=== PATIENT | female | born 1980 | race Hispanic/Latino ===

== ENCOUNTER 2017-10-17 08:42 | Emergency (ER) | payer SELFPAY ==
[~2017-10-17] VITALS: Ht 162.6 cm; Wt 81.6 kg
[2017-10-17 08:53] VITALS: BP 102/70
[2017-10-17] MEDS ORDERED: PREDNISONE10 M2 PO (09:07)
--- NOTE | 2017-10-17 09:07 | ED SKIN/ALLERGY COMPLAINT ---
History of Present Illness General Chief Complaint: Skin Rash/ Abcess Stated Complaint: RASH Source: patient Exam Limitations: no limitations Vital Signs & Intake/Output Vital Signs & Intake/Output Vital Signs Date Time Temp Pulse Resp B/P B/P Pulse O2 O2 Flow FiO2 Mean Ox Delivery Rate 10/17 0853 97.1 107 15 102/70 99 Room Air Room Air Allergies Coded Allergies: No Known Allergies (10/17/17) Reconcile Medications Prednisone 10 MG TABLET 1 TAB PO DAILY rash 4 tabs po x 3 days, 3 tabs po x 3 days, 2 tabs po x 3 days, 1 tab po x 3 days Triage Note: PT TO ED FOR C/C OF RASH TO WHOLE BODY THAT STARTED LAST SUNDAY. RASH IS NOTED TO LOOK LIKE WELTS AND THE WELTS COME AND GO. LARGE AREA NOTED TO ABDOMEN. PT HAS BEEN USING CHALAMINE LOTION AT HOME. Triage Nurses Notes Reviewed? yes Onset: Gradual Duration: week(s): (1) Timing: no prior history Severity: moderate Severity Numbers: 6 Location: torso, extremities Possible Factors: no cause identified Modifying Factors: Improves With: antihistamine, calamine lotion. : No Patient currently breastfeeds: No HPI: Patient is a 37-year-old female presenting to the emergency department sheet complaining of pruritic rash on trunk and extremities has been going for the past one week. She reports that she's been taking Claritin with some relief but over the past 2 days symptoms worsen. Patient also has been applying topical calamine lotion. Denies any shortness of breath fevers chills nausea vomiting chest pain or shortness of breath. Patient denies any new exposures. She does report that she's been under a lot of stress over the past one week. Patient does admit to taking hot showers. (Salome Marsh) Past History Travel History Traveled to [place] past 21 day No Medical History Any Pertinent Medical History? 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 No (Salome Marsh) Review of Systems Review of Systems Constitutional: Reports: no symptoms. Comments Review of systems: See HPI, All other systems negative. Constitutional, no chills fever or weight loss HEENT: No visual changes no sore throat no congestion Cardiovascular: No chest pain ,palpitation , orthopnea or ankle swelling Skin, no jaundice Respiratory: No dyspnea cough sputum or hemoptysis GI: No nausea no vomiting Muscle skeletal: no back pain, no neck pain, Neurologic: No numbness no confusion, no headaches Psych: No stress anxiety or depression,. Heme/endocrine: No bruising no bleeding no polyuria or polydipsia Immunology: No splenectomy or history of AIDS (Salome Marsh) Physical Exam Physical Exam General Appearance: well developed/nourished, no apparent distress, alert, awake , comfortable Comments: Well-developed well-nourished person in no acute distress HEENT: Pupils equally round and reactive to light and accommodation. Nose is atraumatic. External auditory canal and Tympanic membranes clear. Pharynx normal. No swelling or edema. Neck: Normal inspection Cardiovascular: Regular rate and rhythms no murmurs rubs or gallops, normal JVP Respiratory: Chest nontender. No respiratory distress.breath sounds clear to auscultation bilaterally Extremity: No edema Neuro: Alert oriented x3 Skin: Erythematous, blotchy, raised, welt-like lesions noted on the lower extremities and trunk, blanchable. Nontender. Excoriations present. Lesions range from approximately 2 cm in diameter to approximately 8 cm in diameter. Psych: Mood and affect is normal, memory and judgment is normal. (Salome Marsh) Progress Differential Diagnosis: allergic reaction, contact dermatitis, drug reaction, erythema multiforme Plan of Care: Rashes nonspecific, appears to be healed carry-on nature. Patient will be treated with prednisone and [id number] Benadryl. She will follow up with dermatology if symptoms persist. Patient denying any new exposures. (Salome Marsh) Departure Departure Time of Disposition: 905 Disposition: HOME OR SELF CARE Condition: Stable Clinical Impression Primary Impression: Rash and nonspecific skin eruption Referrals: Patient Has No Primary Care Dr (PCP/Family) Margo WALKER,Jodie Daly Additional Instructions: Follow-up with dermatology if symptoms persist. Otherwise follow-up with your primary care physician in the next 5-7 days. Take prednisone taper as prescribed. Use nroe-run-gkslaim Benadryl as directed. Avoid hot showers as ischemic rashes worse. Return for worsening symptoms or concerns. Departure Forms: Customer Survey General Discharge Information Prescriptions: Current Visit Scripts Prednisone 1 TAB PO DAILY #30 TAB 4 tabs po x 3 days, 3 tabs po x 3 days, 2 tabs po x 3 days, 1 tab po x 3 days (Salome Marsh) PA/GPS FIELD DATA COLLECTOR Co-Sign Statement Statement: ED Attending supervision documentation- [] I saw and evaluated the patient. I have also reviewed all the pertinent lab results and diagnostic results. I agree with the findings and the plan of care as documented in the PA's/GPS FIELD DATA COLLECTOR's documentation. [X] I have reviewed the ED Record and agree with the PA's/GPS FIELD DATA COLLECTOR's documentation. [] Additions or exceptions (if any) to the PAs/GPS FIELD DATA COLLECTOR's note and plan are summarized below: [] (Carolyn WALKER,Nestor Xavier)
== END 2017-10-17 09:15 ==
LOC: ERH 08:42
DX: R21 Rash and other nonspecific skin eruption (principal)

== ENCOUNTER 2017-10-30 10:31 | Inpatient (IN) | payer OTHER ==
[~2017-10-30] VITALS: Ht 162.6 cm; Wt 86.2 kg
[~2017-10-30 10:31] MED LIST: PREDNISONE10 M2 PO
--- NOTE | 2017-10-30 13:19 | ED GENERAL ADULT ---
See Addendum History of Present Illness General Chief Complaint: General Adult Stated Complaint: N/V/D,HIVES,WEAKNESS,SORE THROAT Source: patient, family, old records Exam Limitations: no limitations Vital Signs & Intake/Output Vital Signs & Intake/Output Vital Signs Date Time Temp Pulse Resp B/P B/P Pulse O2 O2 Flow FiO2 Mean Ox Delivery Rate 10/30 2349 97.7 86 22 96/52 99 Room Air 10/307 Room Air Room Air 10/30 2035 98.2 96 25 94/62 99 Room Air / 2000 103 94/52 /06 1944 99 95/54 03/06 1831 99.1 94 20 94/56 99 Room Air / 1734 106 18 98/58 98 Room Air / 1710 88/64 /06 1631 74/42 /06 1614 74/00 /06 1613 68/40 03/06 1527 98.3 94 18 78/48 98 Room Air / 1438 99.3 95 18 82/42 99 Room Air / 1405 99 Room Air / 1048 98.6 110 18 100/61 98 Room Air ED Intake and Output / 0000 /06 1200 Intake Total 7930 Output Total 550 Balance 7380 Intake, IV 7450 Intake, Oral 480 Output, Urine 550 Patient 190 lb 190 lb Weight Weight Reported by Patient Reported by Patient Measurement Method Allergies Uncoded Allergies: MULTIPLE ALLERIES (PT UNSURE OF WHAT ALLERGIES 10/30/17) Reconcile Medications Prednisone 10 MG TABLET 1 TAB PO DAILY rash 4 tabs po x 3 days, 3 tabs po x 3 days, 2 tabs po x 3 days, 1 tab po x 3 days Triage Note: 37 YO FEMALE TO TRIAGE C/O HIVES AND SORE THROAT. STATES SHE HAS HAD THE HIVES AND SORE THROAT X2 WEEKS. STATES "I WENT TO THE DOCTOR AND THEY SAID I AM ALLERGIC TO ALOT OF STUFF, I DONT KNOW WHAT THEY ARE BUT ITS ALOT OF MEDS, I THINK IT MIGHT BE BENADRYL" NOTED WITH HIVES ALL OVER BODY. NO RESP DISTRESS, RA SATS 98%, PT SPEAKING IN FULL, CLEAR SENTANCES. Triage Nurses Notes Reviewed? yes Onset: Gradual Duration: day(s): Timing: recent history Injury Environment: home Severity: moderate : No Patient currently breastfeeds: No HPI: 37yo female presents to ED complaining of persistent hives. Patient was seen and evaluated here in the emergency department within the past few weeks for the same complaint. She was started on prednisone taper. Patient reports rash went away following prednisone. After she finished course of steroids her symptoms returned and are currently worse than previous episode. Patient reports intermittent scratchy feeling in her throat and as though her throat is closing. PAtient also reports dyspnea, diarrhea, 10 episodes of vomiting beginning last night. Patient states that today when she was leaving the bathroom she passed out for unknown amount of time, she believes she hit her head at that time. She also hit her left wrist. Patient with pain in her left wrist and mild headache. The patient denies chest pain, abdominal pain, sore throat. (Bernadette Chung) Past History Travel History Traveled to [place] past 21 day No Medical History Any Pertinent Medical History? 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 No (Bernadette Chung) Review of Systems Review of Systems Constitutional: Reports: see HPI. EENTM: Reports: see HPI. Respiratory: Reports: see HPI. Cardiovascular: Reports: no symptoms. GI: Reports: see HPI. Genitourinary: Reports: no symptoms. Musculoskeletal: Reports: see HPI. Skin: Reports: see HPI. Neurological/Psychological: Reports: see HPI. Hematologic/Endocrine: Reports: no symptoms. Immunologic/Allergic: Reports: no symptoms. All Other Systems: Reviewed and Negative (Bernadette Chung) Physical Exam Physical Exam General Appearance: well developed/nourished, no apparent distress, alert, awake Head: atraumatic, normal appearance Eyes: Bilateral: normal appearance, PERRL, EOMI. Ears, Nose, Throat: normal pharynx, hearing grossly normal, no angioedema, no posterior pharynx swelling Neck: normal inspection, supple, full range of motion Respiratory: normal breath sounds, no respiratory distress, lungs clear Cardiovascular: tachycardia Peripheral Pulses: 2+ radial (R), 2+ radial (L) Gastrointestinal: normal bowel sounds, soft, non-tender, no organomegaly Back: normal inspection, normal range of motion Extremities: normal inspection, normal range of motion Neurologic/Psych: awake, alert, oriented x 3, extruding press adjuster II-XII nml as tested Skin: slightly raised urticarial erythematous rash systemically with slightly darker borders, nontender Core Measures ACS in differential dx? No CVA/TIA Diagnosis: No Sepsis Present: No Sepsis Focused Exam Completed? No (Jessica LALA,Bernadette Villaseñor) Progress Differential Diagnoses I considered the following diagnoses in my evaluation of the patient: [ Anaphylactic shock, sepsis, hives/urticaria, allergic reaction, polycythemia vera, leukemia/lymphoma, carcinoid syndrome, leukocytosis] Plan of Care: Orders Procedure Date/time Status ICU LAB BUNDLE 10/31 0500 Complete CBC WITHOUT DIFFERENTIAL 10/31 0500 Complete Regular Diet 10/30 D Active Wound Care/Dressing 10/31 2127 Complete Weight 10/31 2127 Active VTE Mechanical Prophylaxis 10/31 2127 Active Vital Signs 10/31 2127 Active Turn and Reposition 10/31 2127 Complete Drains/Tubes 10/31 2127 Complete Teach/Educate 10/31 2127 Active Skin Integrity Protocol 10/31 2127 Complete Skin/Pressure Ulcer Assess (Sk 10/31 2127 Active Precautions 10/31 2127 Active Pain Treatment and Response 10/31 2127 Active Nutritional Intake, Monitor 10/31 2127 Active Isolation 10/31 2127 Active CIWA 10/31 2127 Complete Patient Care Conference 10/31 2127 Active Activity/Ambulation 10/31 2127 Active RT: Evaluation 10/30 2056 Active ACTIVE SURVEILLANCE NARES 10/30 2046 Active TRC EVALUATION (GEN) 10/30 181 Complete OXYGEN SETUP (GEN) 10/30 1813 Active Pathway - chart 10/30 181 Active House Staff 10/30 1814 Active Patient Data 10/30 1814 Active Code Status 10/30 181 Active Patient Data 10/30 1653 Active Admit to inpatient 10/30 1648 Active CULTURE,URINE 10/30 1615 Active BLOOD CULTURE 10/30 1530 Active Add-on Test (ER Only) 10/30 1456 Active Add-on Test (ER Only) 10/30 1446 Active Add-on Test (ER Only) 10/30 1339 Active LDH (LACT ACID DEHYDROGENASE) 10/30 1338 Complete LACTIC ACID 10/30 1338 Complete HUMAN BETA HCG SCREEN 10/30 1338 Complete C-REACTIVE PROTEIN 10/30 1338 Complete MISTAKE 10/30 1327 Active URINE DRUG SCREEN FOR ER ONLY 10/30 1327 Complete URINALYSIS 10/30 1327 Complete TROPONIN LEVEL 10/30 1327 Complete HIGH SENSITIVITY CRP 10/30 1327 Complete ETHANOL 10/30 1327 Complete COMPREHENSIVE METABOLIC PANEL 10/30 1327 Complete CBC WITHOUT DIFFERENTIAL 10/30 1327 Complete EKG 10/30 1327 Active THROAT CULTURE W/QUICK STREP 10/30 1050 Active THERAPIST ORDERS 10/30 UNK Complete VTE Mechanical Prophylaxis 10/30 UNK Active Vital Signs 10/30 UNK Active MISTAKE 10/30 UNK Complete Intake & Output 10/30 UNK Active Hemoccult 10/30 UNK Active CMS- Neurovascular Checks 10/30 UNK Active Current Medications Sig/Miguel Start time Last Medication Dose Stop Time Status Admin Methylprednisolone 60 MG Q8 10/31 0600 AC 10/31 (Solu Medrol) 0534 Sodium Chloride 1,000 ML Q10H 10/30 1815 AC 10/31 (Normal Saline 0.9%) 0400 Enoxaparin Sodium 40 MG DAILY@1800 10/30 1814 AC (Lovenox) Laboratory Tests 10/31/17 0515: Anion Gap 6, Estimated GFR > 60, Glucose 148 H, Calcium 8.0 L, Phosphorus 2.2 L, Magnesium 1.9, Total Bilirubin 0.3, AST 13 L, ALT 21, Albumin 2.3 L, CBC w Diff MAN DIFF ORDERED, RBC 3.46 L, MCV 87.6, MCH 29.1, MCHC 33.3, RDW 13.6, MPV 7.3 L, Gran % 91.8 H, Lymphocytes % 6.9 L, Monocytes % 1.3 L, Eosinophils % 0, Basophils % 0, Absolute Granulocytes 14.9 H, Segmented Neutrophils 87 H, Band Neutrophils 4, Absolute Lymphocytes 1.1 L, Lymphocytes 8 L, Monocytes 1 L, Absolute Monocytes 0.2, Absolute Eosinophils 0, Absolute Basophils 0, Platelet Estimate ADEQUATE, Normocytic RBCs VERIFIED, Normochromic RBCs VERIFIED , Elliptocytes RARE 10/30/17 1700: Urine Opiates Screen < 100, Methadone Screen < 40, Barbiturate Screen < 60, Ur Phencyclidine Scrn < 6.00, Amphetamines Screen < 100, U Benzodiazepines Scrn < 85, Urine Cocaine Screen < 50, Urine Cannabis Screen < 5.00, Urinalysis LIGHT H , Urine Color STRAW, Urine Clarity HAZY H, Urine pH 7.0, Ur Specific [place] <= 1.005, Urine Protein NEG, Urine Ketones NEG, Urine Nitrite NEG, Urine Bilirubin NEG, Urine Urobilinogen 0.2, Ur Leukocyte Esterase NEG, Ur Microscopic SEDIMENT EXAMINED, Urine RBC RARE, Urine WBC RARE, Ur Epithelial Cells FEW, Urine Bacteria MOD H, Urine Mucus FEW, Urine Hemoglobin SMALL H, Urine Glucose NEG 10/30/17 1338: Lactic Acid 1.5 10/30/17 1338: Anion Gap 11, Estimated GFR > 60, BUN/Creatinine Ratio 15.7, Glucose 106 H, Calcium 8.9, Total Bilirubin 1.4 H, AST 16, ALT 27, Alkaline Phosphatase 69, Lactate Dehydrogenase 627 H, Troponin I < 0.01, C-Reactive Prot, Quant 5.3 H, C-React Prot High Sens > 15.0 H, Total Protein 6.3, Albumin 3.1 L, Globulin 3.2, Albumin/Globulin Ratio 1.0 L, Total Beta HCG NEGATIVE, CBC w Diff MAN DIFF ORDERED, RBC 4.73, MCV 85.8, MCH 28.8, MCHC 33.6, RDW 13.0, MPV 7.4, Gran % 87.5 H, Lymphocytes % 11.8 L, Monocytes % 0.4 L, Eosinophils % 0.2, Basophils % 0.1, Absolute Granulocytes 22.2 H, Absolute Lymphocytes 3.0, Absolute Monocytes 0.1, Absolute Eosinophils 0.1, Absolute Basophils 0, Platelet Estimate VERIFIED BY SMEAR, Normocytic RBCs VERIFIED, Normochromic RBCs VERIFIED, Serum Alcohol < 10.0 Microbiology 10/30 2049 UPPER RESP: Surveillance Culture - RECD 10/30 193 BLOOD: Blood Culture - RECD 10/30 170 URINE ROUT: Urine Culture - RECD 10/30 1645 BLOOD: Blood Culture - RECD Labs show thrombocytosis and leukocytosis with elevated CRP. Patient's blood pressure is now trending downward, she is hypotensive. Second liter of fluids was initiated. Blood pressure continues to trend downward, Dr. Leon ordered epinephrine 0.3 SC. Patient's rash resolved following epinephrine, patient also reports feeling improvement in her symptoms however she is still persistently hypotensive. Patient getting 4 L normal saline. Blood pressure is now improving following 4 L, will continue saline and monitor blood pressure. Patient in no acute distress, stable, mentating well. Dr. Kwok present to see and evaluate the patient. He spoke with Dr. Tello regarding this patient's ICU admission. Diagnostic Imaging: Viewed by Me: Radiology Read, CT Scan. Discussed w/RAD: Radiology Read, CT Scan. Radiology Impression: PATIENT: LAURENT AVERY PRESENT AGE: 37 PATIENT ACCOUNT NO: [id number] : 78 LOCATION: [facility] ORDERING PHYSICIAN: Bernadette LALA SERVICE DATE: 10/30/17 EXAM TYPE: CAT - CT HEAD WO IV CONTRAST EXAMINATION: CT HEAD WITHOUT CONTRAST CLINICAL INFORMATION: Syncopal episode this morning. COMPARISON: None TECHNIQUE: Contiguous axial imaging was performed from the skull base to vertex without intravenous administration of contrast. DLP: 603 mGy-cm FINDINGS: Brain parenchyma: Normal. Gold-white matter differentiation is well preserved. No evidence of an acute major vascular territory infarction, hemorrhage, mass or midline shift. Cerebrospinal fluid spaces: Normal. No hydrocephalus or extra- axial fluid collections. Cerebellum and brainstem: Unremarkable. The 4th ventricle is midline in position. The cerebellopontine angles are normal. Calvarium and temporomandibular joints: Calvarium is intact. Mastoid air cells and middle ear cavities are well aerated. There is mild degenerative subarticular sclerosis and subarticular cystic change of the mandibular condyle at the right TMJ. Paranasal sinuses and orbits: The visualized paranasal sinuses are well aerated. The visualized orbits are unremarkable. Other: No acute findings in the visualized extracranial soft tissues. IMPRESSION: No acute intracranial pathology. DICTATED BY: Pablo Carey MD DATE/TIME DICTATED:10/30 WIRE FRAME LAMPSHADE MAKER:JAMEEL DATE/TIME TRANSCRIBED:10/30/171627 CONFIDENTIAL, DO NOT COPY WITHOUT APPROPRIATE AUTHORIZATION. <Electronically signed in Other Vendor System> SIGNED BY: Pablo Carey MD 10/30/17 1635, PATIENT: LAURENT AVERY PRESENT AGE: 37 PATIENT ACCOUNT NO: [id number] : 76 LOCATION: [facility] ORDERING PHYSICIAN: Bernadette LALA SERVICE DATE: 10/30/17 EXAM TYPE: RAD - XRY-WRIST COMPLETE-RIGHT EXAMINATION: XR WRIST, RIGHT CLINICAL INFORMATION: Pain after fall on wrist. Evaluate for fracture. COMPARISON: None TECHNIQUE: Right wrist, 4 views FINDINGS: Alignment is normal. Distal radius and ulna are intact. No acute fracture, subluxation or focal soft tissue swelling. The carpal joint spaces are normal. The pronator quadratus fat stripe is maintained. IMPRESSION: Normal right wrist. No acute fracture or malalignment. DICTATED BY: Pablo Carey MD DATE/TIME DICTATED:10/30/171528 WIRE FRAME LAMPSHADE MAKER:JAMEEL DATE/TIME TRANSCRIBED:10/30/171528 CONFIDENTIAL, DO NOT COPY WITHOUT APPROPRIATE AUTHORIZATION. <Electronically signed in Other Vendor System> SIGNED BY: Pablo Carey MD 10/30/171533 CXR Impression: PATIENT: LAURENT AVERY PRESENT AGE : 37 PATIENT ACCOUNT NO: [id number] : 76 LOCATION: [facility] ORDERING PHYSICIAN: Bernadette LALA SERVICE DATE: 10/30/17161 EXAM TYPE: RAD - XRY-PORTABLE CHEST XRAY EXAMINATION: XR PORTABLE CHEST CLINICAL INFORMATION: Anaphylactic shock COMPARISON: None TECHNIQUE: Portable frontal view of the chest was obtained. 5:06 PM FINDINGS: No significant abnormality is noted involving the heart, lungs, mediastinum, bony thorax or soft tissues. IMPRESSION : Unremarkable examination. DICTATED BY: Jaime Keating MD DATE/TIME DICTATED:02/11 WIRE FRAME LAMPSHADE MAKER:GUZMAN DATE/TIME TRANSCRIBED:10/30/171727 CONFIDENTIAL, DO NOT COPY WITHOUT APPROPRIATE AUTHORIZATION. <Electronically signed in Other Vendor System> SIGNED BY: Jaime Keating MD 10/30/17 173 Initial ED EKG: sinus tachycardia @106bpm (Jessica LALA,Bernadette Villaseñor) Differential Diagnoses I considered the following diagnoses in my evaluation of the patient: (Carolyn WALKER,Nestor Xavier) Departure Departure Disposition: STILL A PATIENT Clinical Impression Primary Impression: Hypotension Secondary Impressions: Leukocytosis, Nausea & vomiting, Rash, Syncopal episodes, Thrombocytosis Referrals: Payam WALKER,Josh Hurley (PCP/Family) Departure Forms: Customer Survey General Discharge Information Admission Note Spoke With: Guillermina Tello MD Documentation of Exam: Documentation of any treatments & extenuating circumstances including Concerns Regarding Discharge (functional status, medication knowledge or non-compliance, living conditions, etc.) that warrant an admission rather than observation: [ Hypotension requiring ICU monitoring, IV fluids, systemic rash with leukocytosis and thrombocytosis requiring further diagnostic workup, repeat labs, possible heme consult] (Jessica LALA,Bernadette Villaseñor) Departure Condition: Guarded PA/SALES CONTRACTOR Co-Sign Statement Statement: ED Attending supervision documentation- [X] I saw and evaluated the patient. I have also reviewed all the pertinent lab results and diagnostic results. I agree with the findings and the plan of care as documented in the PA's/SALES CONTRACTOR's documentation. [X] I have reviewed the ED Record and agree with the PA's/SALES CONTRACTOR's documentation. [] Additions or exceptions (if any) to the PAs/SALES CONTRACTOR's note and plan are summarized below: [Urticarial rash that the patient had and then it went away after steroids but came back when the steroids were stopped. The rash came back 2 days ago. He intermittently feels a tingling sensation in her throat. Unknown what she is allergic to. This morning she became nauseous and vomited 10 times. Patient then had a syncopal episode after episode of vomiting. Patient denies any difficulty breathing or swallowing. There is no chest pain or palpitations. She has not had any scaly rash. Currently she has a diffuse urticarial rash with raised borders. There are no oral lesions. The rash is not consistent with toxic shock. Patient received IV fluids, IV Solu-Medrol. Patient will receive subcutaneous epinephrine. Blood cultures have been obtained. Patient is alert and oriented 3.] (Carolyn WALKER,Nestor Xavier) Departure Comments 10/27/17 4 PM I've seen and personally examined the patient and I agree with the PAs evaluation. She is a 37-year-old female who presented with an intermittent rash over the past week. In the emergency department she was hypotensive and had urticaria. She denies any fever, chest pain, abdominal pain or other complaints. She says that the prednisone has helped her. Her labs show significant leukocytosis and mild thrombocytosis. Currently she is awake alert and oriented 3 however she is hypotensive. She is receiving IV fluids liters 4 and 5. She will be admitted to the ICU for severe allergic reaction and rule out sepsis. (Johnathan Kwok DO) Critical Care Note Critical Care Note Critical Care Time: 75-104 min (Jessica LALA,Bernadette Villaseñor)
[2017-10-30 14:02] LABS: ABSOLUTE BASOPHIL COUNT 0 /CUMM (0.0-0.2); ABSOLUTE EOSINOPHIL COUNT 0.1 /CUMM (0.0-0.7); ABSOLUTE GRANULOCYTE CT 22.2 /CUMM (1.4-6.5); ABSOLUTE MONOCYTE COUNT 0.1 /CUMM (0.10-0.60); BASOPHIL % 0.1 % (0.0-2.0); EOSINOPHIL % 0.2 % (0-5); GRANULOCYTE % 87.5 % (42.2-75.2); HEMATOCRIT 40.5 % (37-47); MEAN CORPUSCULAR HGB 28.8 PG (27.0-31.0); MEAN CORPUSCULAR HGB CONC 33.6 G/DL (33.0-37.0); MEAN CORPUSCULAR VOLUME 85.8 FL (81.0-99.0); MEAN PLATELET VOLUME 7.4 FL (7.4-10.4); PLATELET COUNT 500 /CUMM (130-400); RED BLOOD CELL CT 4.73 /CUMM (4.20-5.40); WHITE BLOOD CELL COUNT 25.4 /CUMM (4.8-10.8)
--- NOTE | 2017-10-30 15:34 | RADIOLOGY REPORT ---
EXAMINATION: XR WRIST, RIGHT CLINICAL INFORMATION: Pain after fall on wrist. Evaluate for fracture. COMPARISON: None TECHNIQUE: Right wrist, 4 views FINDINGS: Alignment is normal. Distal radius and ulna are intact. No acute fracture, subluxation or focal soft tissue swelling. The carpal joint spaces are normal. The pronator quadratus fat stripe is maintained. IMPRESSION: Normal right wrist. No acute fracture or malalignment.
--- NOTE | 2017-10-30 16:35 | CT SCAN REPORT ---
EXAMINATION: CT HEAD WITHOUT CONTRAST CLINICAL INFORMATION: Syncopal episode this morning. COMPARISON: None TECHNIQUE: Contiguous axial imaging was performed from the skull base to vertex without intravenous administration of contrast. DLP: 603 mGy-cm FINDINGS: Brain parenchyma: Normal. Gold-white matter differentiation is well preserved. No evidence of an acute major vascular territory infarction, hemorrhage, mass or midline shift. Cerebrospinal fluid spaces: Normal. No hydrocephalus or extra-axial fluid collections. Cerebellum and brainstem: Unremarkable. The 4th ventricle is midline in position. The cerebellopontine angles are normal. Calvarium and temporomandibular joints: Calvarium is intact. Mastoid air cells and middle ear cavities are well aerated. There is mild degenerative subarticular sclerosis and subarticular cystic change of the mandibular condyle at the right TMJ. Paranasal sinuses and orbits: The visualized paranasal sinuses are well aerated. The visualized orbits are unremarkable. Other: No acute findings in the visualized extracranial soft tissues. IMPRESSION: No acute intracranial pathology.
--- NOTE | 2017-10-30 17:12 | History & Physical ---
Jeff Rao 10/30/17 1712: General Information and HPI MD Statement: I have seen and personally examined LAURENT AVERY and documented this H&P. Source of Information: patient Exam Limitations: no limitations History of Present Illness: This is a 37-year-old lady with past medical history significant for seasonal allergies, intermittent episodes of urticaria who presents to the hospital for worsening of generalized hives for the past 2 weeks. Per patient, she was evaluated for same complaints few weeks prior to her presentation and was started on prednisone taper. She finished her prednisone taper on Sunday after which her hives were back and were worse. She describes them as generalized hives all over her body, tender to touch, red without itching. On Sunday, she tried some Benadryl to improve her symptoms and experienced scrathy feeling in her throat after taking Benadryl which resolved spontaneously after few hours. Yesterday, she noticed that her hives are getting worse also experienced diarrhea, nausea and vomiting last night and decided to come to the hospital for further evaluation. She also had an episode of passing out after trying to leave the restroom after vomiting; hit her left writs and might have hit her head. She states that has been evaluated as an outpatient and underwent "blood test for allergy", she was told that she is allergic to multiple substances such as dust mite, shrimp, etc. she was referred to an oil exploration engineer for further evaluation she was supposed to meet this coming week. The patient denies trying any new food, clothes, perfume or anything that could' ve triggered the worsening of her hives. She reports that she has been experiencing hives occasionally however they were never this severe. Reports having seasonal allergy mostly in summer for which she takes as needed Claritin. While in the ED, she received IV methylprednisolone and SC epinephrine. She was noted to be hypotensive and required 6 L of IV normal saline total. She noticed immediate improvement in her hives, they almost resolved. She reports experiencing palpitation after receiving"meds" in the ED(likely epinephrine). The patient denies any tobacco, illicit drug use, alcohol use. Mr. Taylor, patient's son is present at bedside. 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 EENTM: Reports: no symptoms. Denies: blurred vision, double vision, visual changes, nasal pain, throat pain. Cardiovascular: Reports: palpitations. Denies: chest pain, edema, orthopena, peripheral edema, syncope. Respiratory: Denies: cough, hemoptysis, orthopnea, short of breath, sputum production, stridor, wheezing. GI: Reports: diarrhea, nausea, vomiting. Denies: abdominal pain, bloating, constipation, distention, bowel incontinence, melena, bloody stool, changes in stool, steatorrhea. Genitourinary: Reports: no symptoms. Musculoskeletal: Reports: no symptoms. Skin: Reports: lesions (hives). Neurological/Psychological: Reports: no symptoms. Hematologic/Endocrine: Reports: no symptoms. Immunologic/Allergic: Reports: no symptoms. All Other Systems: Reviewed and Negative Exam & Diagnostic Data Last 24 Hrs of Vital Signs/I&O Vital Signs Date Time Temp Pulse Resp B/P B/P Pulse O2 O2 Flow FiO2 Mean Ox Delivery Rate 10/30 1831 99.1 94 20 94/56 99 Room Air 10/30 1734 106 18 98/58 98 Room Air / 1710 88/64 / 1631 74/42 / 1614 74/00 / 1613 68/40 /06 1527 98.3 94 18 78/48 98 Room Air / 1438 99.3 95 18 82/42 99 Room Air 10/30 1405 99 Room Air / 1048 98.6 110 18 100/61 98 Room Air Intake & Output 10/30 1600 / 0800 03/ 0000 Intake Total 1100 Output Total Balance 1100 Intake, IV 1100 Patient 190 lb Weight Weight Reported by Patient Measurement Method Physical Exam General Appearance Alert, Oriented X3, Cooperative, No Acute Distress Skin diffuse erythematous, mildly raised patchy lesions on frontal aspect of trunk, UEs and LEs. Lesions are in ring form on the back. Lesions are clinically compatible with urticaria Skin Temp/Moisture Exam: Warm/Dry Sepsis Skin Exam (color): Normal for Ethnicity HEENT Atraumatic, PERRLA, EOMI, Mucous Membr. moist/pink Neck Supple, No JVD, No thryomegaly, +2 Carotid Pulse wo Bruit, No LAD Lymphatic Axillary nl, Cervical nl Cardiovascular tachycardic Lungs Clear to Auscultation, Normal Air Movement, No wheezes Abdomen Normal Bowel Sounds, Soft, No Tenderness, No Hepatospenomegaly, No Masses Neurological Normal Speech, Strength at 5/5 X4 Ext, Normal Tone, Sensation Intact, Cranial Nerves 3-12 NL, Reflexes 2+ Extremities No Clubbing, No Cyanosis, No Edema, Normal Pulses, No Tenderness/ Swelling Vascular Normal Pulses, Pulses Symmetrical Sepsis Peripheral Pulse Location: Radial Sepsis Peripheral Pulse Exam: Normal Last 24 Hrs of Labs/Navdeep: Laboratory Tests 10/30/17 1700: Urine Opiates Screen < 100, Methadone Screen < 40, Barbiturate Screen < 60, Ur Phencyclidine Scrn < 6.00, Amphetamines Screen < 100, U Benzodiazepines Scrn < 85, Urine Cocaine Screen < 50, Urine Cannabis Screen < 5.00, Urinalysis LIGHT H , Urine Color STRAW, Urine Clarity HAZY H, Urine pH 7.0, Ur Specific [place] <= 1.005, Urine Protein NEG, Urine Ketones NEG, Urine Nitrite NEG, Urine Bilirubin NEG, Urine Urobilinogen 0.2, Ur Leukocyte Esterase NEG, Ur Microscopic SEDIMENT EXAMINED, Urine RBC RARE, Urine WBC RARE, Ur Epithelial Cells FEW, Urine Bacteria MOD H, Urine Mucus FEW, Urine Hemoglobin SMALL H, Urine Glucose NEG 10/30/17 1338: Lactic Acid 1.5 10/30/17 1338: Anion Gap 11, Estimated GFR > 60, BUN/Creatinine Ratio 15.7, Glucose 106 H, Calcium 8.9, Total Bilirubin 1.4 H, AST 16, ALT 27, Alkaline Phosphatase 69, Lactate Dehydrogenase 627 H, Troponin I < 0.01, C-Reactive Prot, Quant 5.3 H, C-React Prot High Sens > 15.0 H, Total Protein 6.3, Albumin 3.1 L, Globulin 3.2, Albumin/Globulin Ratio 1.0 L, Total Beta HCG NEGATIVE, CBC w Diff MAN DIFF ORDERED, RBC 4.73, MCV 85.8, MCH 28.8, MCHC 33.6, RDW 13.0, MPV 7.4, Gran % 87.5 H, Lymphocytes % 11.8 L, Monocytes % 0.4 L, Eosinophils % 0.2, Basophils % 0.1, Absolute Granulocytes 22.2 H, Absolute Lymphocytes 3.0, Absolute Monocytes 0.1, Absolute Eosinophils 0.1, Absolute Basophils 0, Platelet Estimate VERIFIED BY SMEAR, Normocytic RBCs VERIFIED, Normochromic RBCs VERIFIED, Serum Alcohol < 10.0 Microbiology 10/30 1936 BLOOD: Blood Culture - RECD 10/30 170 URINE ROUT: Urine Culture - RECD 10/30 164 BLOOD: Blood Culture - RECD Diagnostic Data EKG Results Sinus tachycardia, HR 106, no significant ST-T wave abnormalities CXR Results Unremarkable examination. Assessment/Plan Assessment: This is a 37-year-old lady with past medical history significant for seasonal allergies, intermittent episodes of urticaria who presents to the hospital for worsening of generalized hives for the past 2 weeks. She completed the prednisone taper as an outpatient. Yesterday, she noticed that her hives are getting worse also experienced diarrhea, nausea and vomiting last night and decided to come to the hospital for further evaluation. She also had an episode of passing out after trying to leave the restroom after vomiting; hit her left writs and might have hit her head. While in the ED, she received IV methylprednisolone and SC epinephrine. She was noted to be hypotensive and required 6 L of IV normal saline total. She noticed immediate improvement in her hives, they almost resolved. Assessment: #Acute urticaria w/possible angioedema #Hypotension #leukocytosis #thrombocytosis #Syncopal episode #N/V/diarrhea; symptoms have resolved Plan: * Monitor in the ICU * Check orthostatics * Will start the patient on IV normal saline at 150, monitor blood pressure closely * Has received 125 mg of IV Solu-Medrol into the ED, but start her on IV Solu- Medrol 60 mg 3 times a day * Hematology to r/o malignancy, dermatology and immunology consult * DVT prophylaxis with subcutaneous Lovenox * Patient is full code As Ranked By This Provider Problem List: 1. Thrombocytosis 2. Leukocytosis 3. Hypotension Core Measures/Misc (05/13) Acute Coronary Syndrome ACS Diagnosis: No Congestive Heart Failure Congestive Heart Failure Diagnosis No Cerebrovascular Accident CVA/TIA Diagnosis: No VTE (View Protocol) VTE Risk Factors Obesity No Mechanical VTE Prophylaxis d/t N/A MechProphylax Ordered No VTE Pharm Prophylaxis d/t NA PharmProphylax ordered Sepsis (View protocol) Sepsis Present: No Guillermina Tello MD 10/30/172037: Attending MD Review Statement Attending Statement Attending MD Statement: examined this patient, discuss w/resident/PA/COMB TENDER, agreed w/resident/PA/COMB TENDER, reviewed EMR data (avail) Attending Assessment/Plan: 37F no significant PMH presenting with urticaria. Had an episode about a month ago, took Benadryl which made her throat scratchy, and then Prednisone which resolved them. Then, 2 weeks ago, she developed urticaria again and was again put on Prednisone. Yesterday, she developed weakness, fatigue, and diarrhea. She came to ED today where she was found to be persistently hypotensive 70's/40' s, only improved after 5L NS. She was given Solumedrol in ED which resolved most of her hives, except for some on her back. Per ER nurse, the hives were 4- 6cm in diameter and raised. The patient has no complaints at this time. She has no new exposure to pets, fragrances, medications, supplements, detergents, or any other new agent. She has no packing or tampons in place for risk of toxic shock syndrome. Her labs show WBC 25, platelets 500. Plan - Admit to ICU for initial monitoring of hypotension, if BP holds can be downgraded tomorrow - Continue Solumedrol - Hematology and dermatology (Dr. Fierro) consult - Would recommend Y-access consult with immunology tomorrow - DVT PPx
--- NOTE | 2017-10-30 17:32 | RADIOLOGY REPORT ---
EXAMINATION: XR PORTABLE CHEST CLINICAL INFORMATION: Anaphylactic shock COMPARISON: None TECHNIQUE: Portable frontal view of the chest was obtained. 5:06 PM FINDINGS: No significant abnormality is noted involving the heart, lungs, mediastinum, bony thorax or soft tissues. IMPRESSION: Unremarkable examination.
[2017-10-30 20:35] VITALS: BP 94/62
--- NOTE | 2017-10-30 20:43 | Admission Certification ---
Admission Certification Certification Statement - As attending physician, I certify that at the time of - admission, based on clinical presentation, severity of - symptoms, need for further diagnostic testing and - therapeutic interventions, and risk of adverse outcomes - without in-hospital treatment, in my clinical assessment, - this patient requires an acute hospital stay for a minimum - of two nights or longer. I have also considered psychsocial - factors such as support system, advanced age, financial - issues, cognitive issues, and failed out-patient treatments, - past re-admission history, safety of patient, and lack of - compliance as applicable. Specific rationale supporting this admission is: Urticaria with refractory hypotension
[2017-10-30 23:49] VITALS: BP 96/52
[2017-10-31 05:34] LABS: ABSOLUTE BASOPHIL COUNT 0 /CUMM (0.0-0.2); ABSOLUTE EOSINOPHIL COUNT 0 /CUMM (0.0-0.7); ABSOLUTE LYMPH COUNT 1.1 /CUMM (1.2-3.4); ABSOLUTE MONOCYTE COUNT 0.2 /CUMM (0.10-0.60); EOSINOPHIL % 0 % (0-5); MEAN CORPUSCULAR HGB 29.1 PG (27.0-31.0); MEAN CORPUSCULAR HGB CONC 33.3 G/DL (33.0-37.0)
[2017-10-31 05:43] LABS: ABSOLUTE GRANULOCYTE CT 14.9 /CUMM (1.4-6.5); BASOPHIL % 0 % (0.0-2.0); GRANULOCYTE % 91.8 % (42.2-75.2); MEAN CORPUSCULAR VOLUME 87.6 FL (81.0-99.0); MEAN PLATELET VOLUME 7.3 FL (7.4-10.4); PLATELET COUNT 405 /CUMM (130-400); RBC DISTRIBUTION WIDTH 13.6 % (11.5-14.5); WHITE BLOOD CELL COUNT 16.2 /CUMM (4.8-10.8)
[2017-10-31 06:02] LABS: HEMATOCRIT 30.3 % (37-47); RED BLOOD CELL CT 3.46 /CUMM (4.20-5.40)
[2017-10-31 08:00] VITALS: BP 98/50
--- NOTE | 2017-10-31 09:41 | PN- Housestaff ---
Santiago Bella 10/31/17 0940: Subjective Follow-up For: Anaphylaxis Subjective: Seen and examined patient this morning, lying in bed and ambulating comfortably. States that her rash have considerably improved. Denies any facial swelling, difficulty breathing, throat tightness or itching. Currently 2 weeks ago she started noticing some hives for which she was given 1 week prednisone taper. Bleeding of the taper her symptoms improved however towards the end of the taper she noticed that this macular papular rash started along with itching of her throat. When she went to visit her PCP again she was given Zyrtec and Claritin with no improvement in her symptoms started taking Benadryl since Sunday. Patient denies having previous similar symptoms in the past. She does however note during times of stress she starts to get erythematous satellite lesions that expands and ultimately becomes itchy and painful. She has been under alot of stress recently. About a year ago she was diagnosed as having seasonal allergies however does not give history of asthma, previous similar symptoms as a child or later noted. She was born in [facility] and moved to [place] as a child and has not traveled anywhere since. She does have 2 dogs at home and lives in an old house. She worked at [employer] up until 3 months ago. Review of Systems Constitutional: Denies: chills, diaphoresis, fever, malaise, weakness, unexplained weight loss. Cardiovascular: Denies: chest pain, edema, orthopena, palpitations, peripheral edema, syncope. Objective Last 24 Hrs of Vital Signs/I&O Vital Signs Date Time Temp Pulse Resp B/P B/P Pulse O2 O2 Flow FiO2 Mean Ox Delivery Rate 10/30 2349 97.7 86 22 96/52 99 Room Air 10/30 2056 Room Air Room Air 10/30 2034 98.2 96 25 94/62 99 Room Air /1999 103 94/52 / 1944 99 95/54 / 1831 99.1 94 20 94/56 99 Room Air 10/30 1734 106 18 98/58 98 Room Air 10/30 1710 88/64 / 1631 74/42 /06 1614 74/00 /06 1613 68/40 03/06 1527 98.3 94 18 78/48 98 Room Air 03/06 1438 99.3 95 18 82/42 99 Room Air / 1405 99 Room Air Intake & Output 10/31 1600 03/07 0800 / 0000 Intake Total 1201 6830 Output Total 1550 550 Balance -349 6280 Intake, IV 1081 6350 Intake, Oral 120 480 Output, Urine 1550 550 Patient 190 lb Weight Weight Reported by Patient Measurement Method Physical Exam General Appearance: Alert, Oriented X3, Cooperative, No Acute Distress Skin: blanching erythematous maculopapular rash seen on back. Receding on her arms and legs HEENT: PERRLA, EOMI, Mucous Membr. moist/pink Cardiovascular: Regular Rate, Normal S1, Normal S2 Lungs: Clear to Auscultation, Normal Air Movement Abdomen: Normal Bowel Sounds, Soft, No Tenderness Extremities: No Edema Current Medications: Current Medications Sig/Miguel Start time Last Medication Dose Route Stop Time Status Admin Acetaminophen 1,000 MG ONCE ONE 10/31 0630 DC 10/31 N/A 1 UNIT IV 10/31 0644 0621 Acetaminophen 0 .STK-MED ONE 10/30 1403 DC IV Acetaminophen 1,000 MG ONCE ONE 10/30 1400 DC 03/ N/A 1 UNIT IV / 1414 1405 Enoxaparin Sodium 40 MG DAILY@1800 10/30 1814 AC SC Epinephrine 0 .STK-MED ONE 10/30 1538 DC .ROUTE Epinephrine 0.3 MG ONCE ONE 10/30 1530 DC 03/ SC / 1531 1600 Methylprednisolone 60 MG Q8 / 0600 AC / IV 0534 Methylprednisolone 0 .STK-MED ONE 10/30 1351 DC .ROUTE Methylprednisolone 125 MG ONCE ONE 10/30 1345 DC 03/06 IV 03/ 1346 1358 Sodium Chloride 1,000 ML Q10H / 1815 AC 03/ IV 0400 Sodium Chloride 1,000 ML BOLUS ONE 10/30 1715 DC 03/ IV / 1814 1831 Sodium Chloride 1,000 ML BOLUS ONE 10/30 1715 DC 03/ IV / 1814 1708 Sodium Chloride 1,000 ML BOLUS ONE 10/30 1715 DC 03/ IV 03/ 1814 1831 Sodium Chloride 1,000 ML BOLUS ONE 10/30 1545 DC 03/ IV 03/ 1644 1553 Sodium Chloride 1,000 ML BOLUS ONE 10/30 1500 DC 10/30 IV 10/30 1559 1445 Sodium Chloride 1,000 ML BOLUS ONE 10/30 1345 DC 10/30 IV 10/30 1444 1358 Last 24 Hrs of Lab/Navdeep Results Last 24 Hrs of Labs/Mics: Laboratory Tests 10/31/17 0515: Anion Gap 6, Estimated GFR > 60, Glucose 148 H, Calcium 8.0 L, Phosphorus 2.2 L, Magnesium 1.9, Total Bilirubin 0.3, AST 13 L, ALT 21, Albumin 2.3 L, CBC w Diff MAN DIFF ORDERED, RBC 3.46 L, MCV 87.6, MCH 29.1, MCHC 33.3, RDW 13.6, MPV 7.3 L, Gran % 91.8 H, Lymphocytes % 6.9 L, Monocytes % 1.3 L, Eosinophils % 0, Basophils % 0, Absolute Granulocytes 14.9 H, Segmented Neutrophils 87 H, Band Neutrophils 4, Absolute Lymphocytes 1.1 L, Lymphocytes 8 L, Monocytes 1 L, Absolute Monocytes 0.2, Absolute Eosinophils 0, Absolute Basophils 0, Platelet Estimate ADEQUATE, Normocytic RBCs VERIFIED, Normochromic RBCs VERIFIED , Elliptocytes RARE 10/30/17 1700: Urine Opiates Screen < 100, Methadone Screen < 40, Barbiturate Screen < 60, Ur Phencyclidine Scrn < 6.00, Amphetamines Screen < 100, U Benzodiazepines Scrn < 85, Urine Cocaine Screen < 50, Urine Cannabis Screen < 5.00, Urinalysis LIGHT H , Urine Color STRAW, Urine Clarity HAZY H, Urine pH 7.0, Ur Specific [place] <= 1.005, Urine Protein NEG, Urine Ketones NEG, Urine Nitrite NEG, Urine Bilirubin NEG, Urine Urobilinogen 0.2, Ur Leukocyte Esterase NEG, Ur Microscopic SEDIMENT EXAMINED, Urine RBC RARE, Urine WBC RARE, Ur Epithelial Cells FEW, Urine Bacteria MOD H, Urine Mucus FEW, Urine Hemoglobin SMALL H, Urine Glucose NEG 10/30/17 1338: Lactic Acid 1.5 10/30/17 1338: Anion Gap 11, Estimated GFR > 60, BUN/Creatinine Ratio 15.7, Glucose 106 H, Calcium 8.9, Total Bilirubin 1.4 H, AST 16, ALT 27, Alkaline Phosphatase 69, Lactate Dehydrogenase 627 H, Troponin I < 0.01, C-Reactive Prot, Quant 5.3 H, C-React Prot High Sens > 15.0 H, Total Protein 6.3, Albumin 3.1 L, Globulin 3.2, Albumin/Globulin Ratio 1.0 L, Total Beta HCG NEGATIVE, CBC w Diff MAN DIFF ORDERED, RBC 4.73, MCV 85.8, MCH 28.8, MCHC 33.6, RDW 13.0, MPV 7.4, Gran % 87.5 H, Lymphocytes % 11.8 L, Monocytes % 0.4 L, Eosinophils % 0.2, Basophils % 0.1, Absolute Granulocytes 22.2 H, Absolute Lymphocytes 3.0, Absolute Monocytes 0.1, Absolute Eosinophils 0.1, Absolute Basophils 0, Platelet Estimate VERIFIED BY SMEAR, Normocytic RBCs VERIFIED, Normochromic RBCs VERIFIED, Serum Alcohol < 10.0 Microbiology 10/30 2049 UPPER RESP: Surveillance Culture - RECD 10/30 1936 BLOOD: Blood Culture - RECD 10/30 170 URINE ROUT: Urine Culture - RES 10/30 164 BLOOD: Blood Culture - RECD Assessment/Plan Assessment: 37-year-old woman with seasonal allergies diagnosed about a year ago stress induced rash and no significant past medical history admitted for nausea / vomiting /diarrhea of one day duration and acute urticaria w/possible angioedema, found to be be hypotensive and required 6 L of IV normal saline. In ED she received IV methylprednisone and subcutaneous epinephrine. All events reported overnight Leukocytosis trended down to 16.2, hemoglobin 10.1/hematocrit 30.3, platelets dropped from 500-405 this morning Assessment and plan: Acute Urticaria/angioedema ddx allergic vs vasculitc vs autoimmune (sle vs RA) no h/o of recent antibiotics/Nsaids use, infection, new foods/toiletries Currently on 60 IV solumedrol every 8hrs will decrease it to q12 Her drop in H&H due to dilution Has appt to see a Dermatology tommorrow however she mostly likely will benefit from following up with an business applications analyst. Upon discharge please refer her to Dr. Bibi Pace (Marketer/ fish net maker), [address] [place] [id number] phone number [phone] Hypotension-resolved Pressure stable 110 /80 this morning Will discontinue IV fluids and continue to monitor Prophylaxis subcutaneous heparin Regular diet Full code Problem List: 1. Rash and nonspecific skin eruption 2. Hypotension Pain Ratin Pain Location: na Pain Goal: Pain 4 or less Pain Plan: current regimen Tomorrow's Labs & Rationales: none Andrzej Hernandez MD 10/31/17 1404: Attending MD Review Statement Attending Statement Attending MD Statement: examined this patient, discuss w/resident/PA/PATIENT ACCESS REPRESENTATIVE, agreed w/resident/PA/PATIENT ACCESS REPRESENTATIVE, discussed with family, reviewed EMR data (avail), discussed with nursing, discussed with case mgmt, reviewed images, amended to note Attending Assessment/Plan: Seen and examined independently This is a lady with history suggestive of urticaria with angioedema now admitted. Seems to be improving. Needs follow-up and evaluation with allergy and immunology. 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 Patient should avoid any latex Patient would require extensive blood work which include food allergy panel as well Complete blood work as ordered Downgraded to general med floor for today and can be discharged Please try to obtain an allergy immunology appointment to the patient Catalino Blakely MD 11/01/17 0802: Attending MD Review Statement Attending Statement Attending Assessment/Plan: Discussed with house staff and care as per Dr. Hernandez. OK to downgrade to [facility].
[2017-10-31 16:00] VITALS: BP 98/50
[2017-10-31 22:02] VITALS: BP 138/80
[2017-11-01 07:00] VITALS: BP 136/76
--- NOTE | 2017-11-01 08:29 | PN- Housestaff ---
Profirio WALKER,[facility] 11/01/17 0828: Subjective Follow-up For: Anaphylaxis Subjective: Patient was seen and examined at bedside. She states she feels much better. Denies any symptoms that initially brought her in to the hospital. Eager to go home. No events overnight reported. Review of Systems Constitutional: Reports: no symptoms. Objective Last 24 Hrs of Vital Signs/I&O Vital Signs Date Time Temp Pulse Resp B/P B/P Pulse O2 O2 Flow FiO2 Mean Ox Delivery Rate 11/01 699 98.3 63 18 136/76 98 10/31 2202 97.9 82 18 138/80 97 Room Air 10/31 1600 98.1 72 16 98/50 98 Room Air Intake & Output 11/01 1600 11/01 0811/01 0000 Intake Total 240 240 Output Total Balance 240 240 Intake, Oral 240 240 Physical Exam General Appearance: Alert, Oriented X3, Cooperative, No Acute Distress Skin: No Rashes, No Breakdown Skin Temp/Moisture Exam: Warm/Dry Sepsis Skin Exam (color): Normal for Ethnicity HEENT: Atraumatic Cardiovascular: Normal S1, Normal S2, No Murmurs Lungs: Clear to Auscultation, Normal Air Movement Abdomen: Soft, No Tenderness Neurological: Normal Speech Extremities: No Edema Assessment/Plan Assessment: 37-year-old woman with PMH of seasonal allergies came in to the ED for nausea / vomiting /diarrhea of one day duration. She was initially admitted to the ICU where she received IV solu-medrol and aggressive fluid hydration with 6L of NS. After initial stabilization, patient's symptoms improved. As she was stable, she was transferred from ICU to general medicine floor. Assessment and Plan: Acute Urticaria/angioedema * Her symptoms have resolved. * Would continue her on Prednisone for 5 days. She received her first dose here. Can finish it outpatient. * Will provide her a script for Epipen on discharge, to aid in future acute episodes until she follows up with an Professional Fee Coder. * She has been provided with referrals to schedule an appointment with an Professional Fee Coder. * Patient stable to be discharged. Hypotension-resolved Prophylaxis subcutaneous heparin Regular diet Full code Problem List: 1. Rash and nonspecific skin eruption Pain Ratin Pain Location: none Pain Goal: Remain pain free Pain Plan: none Tomorrow's Labs & Rationales: none Mounika Kendall 11/01/17 1119: Attending MD Review Statement Attending Statement Attending MD Statement: examined this patient, discuss w/resident/PA/SANIPRACTIC PHYSICIAN, agreed w/resident/PA/SANIPRACTIC PHYSICIAN, discussed with family, reviewed EMR data (avail), discussed with nursing, discussed with case mgmt, reviewed images, amended to note Attending Assessment/Plan: Patient with urticaria and angioedema. Patient on room air with improvement in redness and rash. Patient is on PO steroids, antihistamines. Patient given prescription of epi pen at discharge, check with case management associate if covered with insurance. Patient also given referral to allergy/immnuology as outpatient. Patient is medically stable for discharge. redness and rash. Patient is on PO steroids, antihistamines. Patient given prescription of epi pen at discharge, check with case management associate if covered with insurance. Patient also given referral to allergy/immnuology as outpatient. Patient is medically stable for discharge.
--- NOTE | 2017-11-01 08:53 | Patient Discharge Instructions ---
Discharge Instructions General Discharge Information You were seen/treated for: Jennifer Kulkarni Watch for these problems: throat swelling, difficulty breathing, itchiness, redness of skin Special Instructions: Please follow up with your PCP and an care management specialist within one week of discharge. Dr. Bibi Pace (energy project manager) will likely accept your insurance. Her details are as follows: [address] [place] [address] phone number [phone] Diet Continue normal diet: Yes Activity Full Activity/No Limits: Yes Acute Coronary Syndrome Inclusion Criteria At DC or during hospital stay patient has or had the following: ACS DIAGNOSIS No Discharge Core Measures Meds if any: Prescribed or Continued at Discharge Meds if any: NOT Prescribed or Continued at Discharge Congestive Heart Failure Inclusion Criteria At DC or during hospital stay patient has or had the following: CHF DIAGNOSIS No Discharge Core Measures Meds if any: Prescribed or Continued at Discharge Meds if any: NOT Prescribed or Continued at Discharge Cerebrovascular accident Inclusion Criteria At DC or during hospital stay patient has or had the following: CVA/TIA Diagnosis No Discharge Core Measures Meds if any: Prescribed or Continued at Discharge Meds if any: NOT Prescribed or Continued at Discharge Venous thromboembolism Inclusion Criteria VTE Diagnosis No VTE Type NONE VTE Confirmed by (Test) NONE Discharge Core Measures - Per Current guidelines, there needs to be overlap - treatment for the first 5 days of Warfarin therapy. - If discharged on Warfarin prior to 5 days of - overlap therapy, the patient will need to be - assessed for post discharge needs including - *Post discharge parental anticoagulation - *Warfarin and/or parental anticoagulation education - *Follow up date to check INR post discharge At least 5 days overlap therapy as Inpatient No Meds if any: Prescribed or Continued at Discharge Note: Overlap Therapy is Warfarin and Anticoagulant Meds if any: NOT Prescribed or Continued at Discharge
[2017-11-01 09:12] LABS: ABSOLUTE BASOPHIL COUNT 0 /CUMM (0.0-0.2); ABSOLUTE EOSINOPHIL COUNT 0 /CUMM (0.0-0.7); ABSOLUTE GRANULOCYTE CT 24.1 /CUMM (1.4-6.5); ABSOLUTE LYMPH COUNT 1.7 /CUMM (1.2-3.4); ABSOLUTE MONOCYTE COUNT 0.9 /CUMM (0.10-0.60); BASOPHIL % 0 % (0.0-2.0); EOSINOPHIL % 0 % (0-5); HEMATOCRIT 28.7 % (37-47); MEAN CORPUSCULAR HGB 28.9 PG (27.0-31.0); MEAN CORPUSCULAR HGB CONC 33.3 G/DL (33.0-37.0); MEAN CORPUSCULAR VOLUME 86.8 FL (81.0-99.0); MEAN PLATELET VOLUME 7.2 FL (7.4-10.4); PLATELET COUNT 437 /CUMM (130-400); RBC DISTRIBUTION WIDTH 13.5 % (11.5-14.5); RED BLOOD CELL CT 3.31 /CUMM (4.20-5.40)
[2017-11-01 09:15] LABS: WHITE BLOOD CELL COUNT 26.7 /CUMM (4.8-10.8)
[2017-11-01 09:30] LABS: GRANULOCYTE % 90.4 % (42.2-75.2)
[2017-11-01] MEDS ORDERED: EPINEPHRIN0.3 MG/0.1 IM ×2 (11:11→11:24)
[2017-11-01] MEDS ORDERED: PREDNISONE20 M1 PO ×2 (11:11→11:24)
--- NOTE | 2017-11-01 13:35 | Discharge Summary ---
Visit Information Visit Dates Admission Date: 10/30/17 Discharge Date: 11/01/17 Hospital Course Course Attending Physician: Guillermina Tello MD Primary Care Physician: Josh Hare Allergies: Uncoded Allergies: MULTIPLE ALLERIES (PT UNSURE OF WHAT ALLERGIES 10/30/17) Disposition Summary Disposition Discharge Disposition: home or self care Discharge Instructions General Discharge Information Code Status: Full Code Patient's Diet: Regular Patient's Activity: As tolerated Follow-Up Instructions/Appts: Please follow up with your PCP and an it technical support specialist within one week of discharge. Medications at Discharge Discharge Medications: Stop taking the following medications: Prednisone (Prednisone) 10 MG TABLET ORAL DAILY Qty = 30 Start taking the following new medications: Epinephrine (Epinephrine) 0.3 MG/0.3 ML AUTO.INJCT 0.3 Milligram INTRAMUSC As Directed as needed for Throat swelling, rash Qty = 2 No Refills Instructions: Please use the epi-pen if you experience shortness of breath, dizziness, feeling of passing out, swelling of lips, tightness of throat, itchiness and redness of skin Comments: Please use the epi-pen if you experience shortness of breath, dizziness, feeling of passing out, swelling of lips, tightness of throat, itchiness and redness of skin NOT GIVEN ON THIS FLOOR Prednisone (Prednisone) 20 MG TABLET 40 Milligram ORAL DAILY Qty = 12 No Refills Comments: Last Taken: 11/01/17 Time: 900 AM
[2017-11-01 14:00] VITALS: BP 110/70
--- NOTE | 2017-11-02 14:02 | Discharge Summary ---
Visit Information Visit Dates Admission Date: 10/30/17 Discharge Date: 11/01/17 Hospital Course Course Attending Physician: Dr. KENDALL Primary Care Physician: Patient Has No Primary Care Dr Hospital Course: Mrs. Btuterfield is 37-year-old woman with seasonal allergies diagnosed about a year ago, no significant past medical history admitted was admitted to [facility] for acute urticaria and angioedema, found to be found to be persistently hypotensive 70's/40's in ED and required 6 L of IV normal saline, IV methylprednisone and subcutaneous epinephrine. No clear triggers were identified. Denied having previous similar symptoms in the past. She es note during times of stress she starts to get erythematous satellite lesions that expdoands and ultimately becomes itchy and painful. She has been under alot of stress recently. She does have 2 dogs at home and lives in an old house. She worked at [employer] up until 3 months ago. She was admitted to ICU for close monitoring. She remained hemodynamically stable and her leukocytosis was thought to be secondary to her steroids. And her IV prednisone was switched to by mouth prednisone for a total course of 5 days. Her complement levels were normal She was also started on Zantac as well as loratadine. Upon discharge she had an appointment to see Dr. Bibi Pace (tube knitter). She was also given an EpiPen injection kit and was advised to avoid NSAIDs as well as aspirin. Complications: None Allergies: Uncoded Allergies: MULTIPLE ALLERIES (PT UNSURE OF WHAT ALLERGIES 10/30/17) Disposition Summary Disposition Principal Diagnosis: Angioedema Additional Diagnosis: Urticaria Discharge Disposition: home or self care Discharge Instructions General Discharge Information Code Status: Full Code Patient's Diet: Regular Patient's Activity: full activity Follow-Up Instructions/Appts: Follow up with your PCP Follow up with Dr. Bibi Pace (tube knitter) Medications at Discharge Discharge Medications: Stop taking the following medications: Prednisone (Prednisone) 10 MG TABLET ORAL DAILY Qty = 30 Start taking the following new medications: Epinephrine (Epinephrine) 0.3 MG/0.3 ML AUTO.INJCT 0.3 Milligram INTRAMUSC As Directed as needed for Throat swelling, rash Qty = 2 No Refills Instructions: Please use the epi-pen if you experience shortness of breath, dizziness, feeling of passing out, swelling of lips, tightness of throat, itchiness and redness of skin Comments: Please use the epi-pen if you experience shortness of breath, dizziness, feeling of passing out, swelling of lips, tightness of throat, itchiness and redness of skin NOT GIVEN ON THIS FLOOR Prednisone (Prednisone) 20 MG TABLET 40 Milligram ORAL DAILY Qty = 12 No Refills Comments: Last Taken: 11/01/17 Time: 900 AM Copies To: Payam WALKER,Josh Hurley Attending MD Review Statement Documenting Attending: Mounika Kendall MD
== END 2017-11-01 15:19 | DRG 385 ==
LOC: ERH 10:31 → CRI 16:48 → 2NB 16:48 → ERHI 16:48 → ENRESERV 18:37 → ENTRNSPT 20:14 → EDTRNSPTSTS 20:24 → EDTRNSPT 20:24 → CRI 20:33 → CMPTRNSPT 20:38 → ENTRNSPT 10-31 20:50 → 2NB 10-31 21:11 → CMPTRNSPT 10-31 21:22 → ENPENDDIS 11-01 13:34 → 2NB 11-01 15:19
PROVIDERS: Internal Medicine; Internal Medicine Endocrinology, Diabetes & Metabolism; Physician Assistant
DX: L50.9 Urticaria, unspecified (principal); I95.9 Hypotension, unspecified; D47.3 Essential (hemorrhagic) thrombocythemia; J30.2 Other seasonal allergic rhinitis; Z79.52 Long term (current) use of systemic steroids; D72.829 Elevated white blood cell count, unspecified
CPT/HCPCS: 2NBP; 86160; CCU; 36415; 71045; 73110-RT; 80307; 81001; 82436; 87040; 87045; 87086; 93005; 93010; 96361; 96372; 96374; 96375; 99291; G0480; J0131; J0171; J1650; J2930